=== PATIENT | male | born 1945 | race Caucasian/White ===

== ENCOUNTER 2017-08-07 13:55 | Inpatient (IN) | payer BC, OTHER ==
[~2017-08-07] VITALS: Ht 175.3 cm; Wt 94.7 kg
--- NOTE | ~2017-08-07 | H ---
[facility] [place] [address] HISTORY AND PHYSICAL Name: SATYA RUIZ Room #: 506-1 ADM IN M.R.#: [id number] Admission: 08/07/17 Attend Phys: Himanshu Davis MD Discharge: Date of : 49 Report #: [id number] THIS REPORT FOR: //name// CC: Himanshu Mauro DATE OF SERVICE: 08/07/2017 HISTORY AND PHYSICAL/POST-ADMISSION PHYSICIAN EVALUATION HISTORY OF PRESENT ILLNESS: The patient is a 72-year-old white male with history of multiple sclerosis, gradual worsening weakness, who was noted to have a decline in his overall function. He had been ambulatory with the walker around the house, but over the past several months, he has had steady and significant decline. His has had to do more and more assistance. He was diagnosed with a urinary tract infection and upon admission was noted to have significant urinary retention with residual greater than 700 mL, even while on Flomax. Urology saw him and he has now undergone a suprapubic tube, which has been placed. He has the significant functional deficits and has now been admitted for acute in-hospital inpatient rehabilitation. PAST MEDICAL HISTORY: Acute renal insufficiency, degenerative arthritis, UTIs, which are noted to be recurrent and the multiple sclerosis. MEDICATIONS: Please see the full medication listing. Each of these was individually reconciled upon the patient's admission and includes vitamins, herbals and supplements. ALLERGIES: No known drug allergies. SOCIAL HISTORY: Lives with spouse. She helps with most ADLs. He had been primarily wheelchair bound, although he could ambulate short distances with a walker with assist. She works from home and notes that she can do her job online. REVIEW OF SYSTEMS: Did not offer any current complaints of chest pain, shortness of breath, abdominal discomfort. No focal extremity pain complaints. PHYSICAL EXAMINATION: GENERAL: A pleasant 72-year-old male in no obvious distress. VITAL SIGNS: Last recorded temperature is 99.8, pulse 104, respirations 18, blood pressure 136/72. Admission vitals are being obtained while on the rehab hogue. HEENT: Appeared to be benign. He has obvious dysarthria and some evidence of masked facies. NECK: No lymphadenopathy. [facility] [address] [place] [address] HISTORY AND PHYSICAL Name: SATYA RUIZ Room #: 506-1 ADM IN .R.#: [id number] Admission: 08/07/17 Attend Phys: Himanshu Davis MD Discharge: Date of : 49 Report #: [id number] CHEST: Sounded clear to auscultation. CARDIOVASCULAR: Regular rate and rhythm. ABDOMEN: He has the suprapubic tube in place. The surrounding skin appears to be intact without any evidence of drainage or erythema. Bowel sounds are positive. EXTREMITIES: He has functional range of motion of both upper extremities with some rigidity. He has cogwheeling, elbows and wrists. He has resting tremor of both hands. Decreased strength grade 4-/5 with some decreased coordination. Lower extremities, no focal calf swelling, functional range of motion, although he has some rigidity. Strength is probably a grade 3-3+/5. DTRs are decreased. He has been needing max assist for basic functional mobility skills. ASSESSMENT: A 72-year-old white male with the following problem list: 1. Multiple sclerosis with significant functional decline. 2. Urinary retention, now status post suprapubic tube. 3. Recurrent urinary tract infections. 4. Degenerative arthritis, multiple joints. 5. Functional mobility and ADL deficits. PLAN: The patient is admitted for acute in-hospital inpatient rehabilitation. From a post-admission physician evaluation perspective, there are no relevant changes since the preadmission screening. Please see the above review of prior and current medical and functional conditions and comorbidities. Please see the patient's previous and current functional status. As far as risk of complications, the patient has multiple medical comorbidities as noted above. The initial plan of care involves the interdisciplinary acute inpatient rehabilitation program with the goal of maximizing the patient's functional independence, so that he can hopefully return back to his prior living situation. Prognosis is reasonably good with estimated length of stay probably at least 1-2 weeks or potentially longer pending progress. Potential barriers would include his multiple medical comorbidities and decreased functional status. The patient is admitted for an acute interdisciplinary inpatient rehabilitation stay with the goal of maximizing his functional independence, so that he can return back to the home setting. Discussion with the who is closely involved. <ELECTRONICALLY SIGNED> By: Himanshu Davis MD 08/14/17 1316 [id number] Himanshu Davis MD /[facility]
--- NOTE | ~2017-08-07 | HC ---
[facility] [place] [address] CONSULTATION Name: SATYA RUIZ Room #: 506-1 ADM IN M.R.#: [id number] Admission: 08/07/17 Attend Phys: Himanshu Davis MD Discharge: Date of : 49 Report #: [id number] THIS REPORT FOR: //name// CC: Himanshu Mauro DATE OF SERVICE: 08/11/2017 NEUROBEHAVIORAL STATUS EXAM AGE: 72. ATTENDING PHYSICIAN: Himanshu Davis MD. STAMPING MILL TENDER: Champ Joshua, PhD. CLINICAL PRESENTATION: The patient is a 72-year-old male admitted to the [facility] for comprehensive inpatient rehabilitation program to improve functional mobility, activities of daily living and self-care and mental status secondary to deficits from multiple sclerosis and functional decline. His assessment on admission includes recurrent retention status post suprapubic tube, recurrent urinary tract infections, degenerative arthritis and functional mobility and ADL deficits. A complete description of his medical condition and history can be found in his medical record. Neuropsychological consultation was requested to provide assistance in the assessment of cognitive and emotional status and to provide recommendations and services. Prior to this admission, he was living with his in their home. She is reported to provide assistance with most activities of daily living. He is right wheelchair bound and requires assistance for basic and instrumental activities of daily living. He does not report having had children. He had one sibling. 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 He is a college graduate. TECHNIQUES UTILIZED: Clinical interview, review of medical records, staff consultation and behavioral observation, mini mental status exam 2 standard version. EXAMINATION FINDINGS: The patient was alert and cooperative with the assessment. He was unable to describe the reason for his hospitalization. He required assistance in turning off the television through the remote control. The patient does not report auditory or visual hallucinations. Deficits in verbal fluency are noted. Severe hand tremors and weakness were noted bilaterally. The patient had difficulty with verbal fluency which interferes with description of symptoms and problems. He describes feeling depressed about his loss of his cognitive ability, memory and word finding. [facility] [address] [place] [address] CONSULTATION Name: SARASATYA FRANCIS Room #: 506-1 ADM IN M.R.#: [id number] Admission: 08/07/17 Attend Phys: Himanshu Davis MD Discharge: Date of : 49 Report #: [id number] appetite are described as within normal limits. His performance on the mini mental status exam 2 brief version was extremely low with a raw score 4 of 16. The MMSE 2 standard version was extremely low with a raw score of 11 of 30. The patient was 3/3 for initial registration. He was 0/5 for orientation to time and 1/[address] He was 0/3 correct for immediate recall of 3 items after a brief time delay and distraction. He was 0/5 for serial 7's, 2/2 for naming, 1/1 for repetition and 3/3 for auditory comprehension. He could read and follow single command. The patient was unable to copy a simple design or write a sentence. 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 The patient is presenting with severe deficits in orientation, attention/concentration, memory and executive functioning. Depressed mood is also noted. DIAGNOSTIC IMPRESSION: Major neurocognitive disorder (dementia), unspecified, without behavior disorder - moderate to severe. Unspecified depressive disorder with anxiety. RECOMMENDATIONS: Indicated is a treatment program for cognitive disorder and depression. Medication to support cognition and The use of an antidepressant will be helpful. Environmental modifications to assist him in compensation will be of benefit to improve his sense of control. Verbal praise and complements about participation in therapies and in the engagement of independent activity. The patient will require 24-hour care with close supervision to maintain safety for medication finances and nutrition. Thank you very much for allowing me to provide the consultation on this patient. <ELECTRONICALLY SIGNED> By: Champ Joshua, PhD 08/17/17 1405 [id number] Champ Joshua, PhD /nt
--- NOTE | ~2017-08-07 | PLAN ---
[facility] [place] [address] [place] [address] REHAB UNIT PLAN OF CARE Name: SATYA RUIZ Room #: 506-1 ADM IN M.R.#: [id number] Admission: 08/07/17 Attend Phys: Himanshu Davis MD Discharge: Date of : 49 Report #: [id number] THIS REPORT FOR: //name// CC: Himanshu Mauro DATE OF SERVICE: 08/09/2017 SUBJECTIVE: The patient is seen back today in followup. He is in no distress. Temperature 36.7, pulse 110, respirations 18, blood pressure 145/65. Chest sounds clear. No focal calf swelling. Transfers are max assist, bed to wheelchair. He has ambulated 4 feet, mod assist in the parallel bars, which is progress. In occupational therapy, lower body dressing is dependent, upper body dressing is dependent. He does have [id number] comprehensive deficits per speech therapy. I examined his suprapubic tube and it appears to be intact. There is no drainage or erythema. He did have a chest x-ray that was done yesterday that showed a small left pleural effusion with mild plates-like atelectasis at left lower lobe. ASSESSMENT: 1. Multiple sclerosis with significant functional decline. 2. Urinary retention, now status post suprapubic tube. 3. Recurrent urinary tract infections. 4. Degenerative arthritis involving multiple joints. 5. Multiple mobility and ADL deficits. PLAN: The overall plan of care is based on the preadmission screen, post admission physician evaluation and information garnered from therapy assessments. 1. Estimated length of stay is probably at least 1-2 weeks pending progress and likely longer as he is at a lower functional level. 2. Medical prognosis is reasonably good. 3. Anticipated interventions includes the interdisciplinary acute inpatient rehabilitation program with the goal of maximizing his functional independence, so he can hopefully return back to the home setting. 4. Anticipated functional outcomes would be for the patient to become modified independent with transfers, mobility and ADLs as well as improved communication so that he can return back to the home setting. 5. Discharge destination is back to the home setting with his . 6. Expected therapy by discipline includes PT and OT and speech 1 hour per day each 5 days a week throughout the duration of the acute inpatient rehabilitation stay. We may be able to focus more on the PT and the OT depending upon how he does in speech therapy. <ELECTRONICALLY SIGNED> By: Himanshu Davis MD 08/15/17 1456 [id number] Himanshu Davis MD /[facility]
[~2017-08-07 13:55] MED LIST: ALEVE220 MG PO; CEFDINIR300 MG PO; CELESTONE30 MG/5 ML IM; CLARITIN10 MG PO; FLOMAX0.4 MG PO; LIPITOR10 MG PO; METFORMIN HCL500 MG PO; ONE DAILY COMP1 EAC1 PO; VITAMIN D2000 UNIT PO
[2017-08-07 15:58] VITALS: BP 139/40
[2017-08-07 19:47] VITALS: BP 137/68
[2017-08-08 06:40] LABS: HEMATOCRIT 38.2 % (42.0-52.0); HEMOGLOBIN 12.8 gm/dL (14.0-18.0); MCH 30.6 pg (26.0-34.0); MCHC 33.6 g/dL (28.0-37.0); MCV 91.1 fL (80.0-100.0); RBC 4.19 mil/uL (4.50-6.00); RDW 13.8 % (10.5-14.5); WBC 12.9 thou/uL (4.0-11.0)
[2017-08-08 06:57] LABS: CALCIUM 9.3 mg/dL (8.5-10.1); CREATININE 0.7 mg/dL (0.7-1.3); POTASSIUM 4.1 mmol/L (3.5-5.1)
[2017-08-08 08:30] VITALS: BP 132/79
[2017-08-08 19:36] VITALS: BP 145/65
[2017-08-09 20:32] VITALS: BP 147/79
[2017-08-10 08:30] VITALS: BP 145/75
[2017-08-10 20:11] VITALS: BP 136/80
[2017-08-11 09:36] VITALS: BP 126/75
[2017-08-11 20:40] VITALS: BP 132/89
[2017-08-12 08:15] VITALS: BP 132/82
[2017-08-12 20:10] VITALS: BP 134/67
[2017-08-13 07:58] VITALS: BP 109/56
[2017-08-13 19:46] VITALS: BP 134/80
[2017-08-14 08:00] VITALS: BP 116/69
[2017-08-14 20:07] VITALS: BP 130/81
[2017-08-15 08:30] VITALS: BP 135/78
[2017-08-15 19:54] VITALS: BP 121/67
[2017-08-16 07:44] VITALS: BP 130/77
[2017-08-16 19:49] VITALS: BP 134/82
[2017-08-17 07:30] VITALS: BP 133/80
[2017-08-17 19:28] VITALS: BP 123/77
[2017-08-18 19:58] VITALS: BP 128/82
[2017-08-19 08:00] VITALS: BP 104/71
[2017-08-19 19:50] VITALS: BP 128/72
[2017-08-20 08:15] VITALS: BP 127/82
[2017-08-20 20:00] VITALS: BP 152/74
[2017-08-21 08:46] VITALS: BP 122/74
[2017-08-21 19:51] VITALS: BP 142/89
[2017-08-22 08:15] VITALS: BP 127/81
[2017-08-22 19:46] VITALS: BP 151/89
[2017-08-23 07:45] VITALS: BP 126/70
[2017-08-23 19:42] VITALS: BP 143/85
[2017-08-24 11:23] VITALS: BP 126/76
[2017-08-24 19:34] VITALS: BP 140/76
[2017-08-25 08:00] VITALS: BP 120/73
[2017-08-25 20:00] VITALS: BP 131/63
[2017-08-26 08:00] VITALS: BP 153/84
[2017-08-26 20:01] VITALS: BP 137/82
[2017-08-27 07:30] VITALS: BP 122/69
== END 2017-08-27 16:35 | DRG 59 ==
PROVIDERS: Physical Medicine & Rehabilitation
DX: G35 Multiple sclerosis (principal); N39.0 Urinary tract infection, site not specified; R33.9 Retention of urine, unspecified; M19.90 Unspecified osteoarthritis, unspecified site; F01.50 Vascular dementia, unspecified severity, without behavioral disturbance, psychotic disturbance, mood disturbance, and anxiety; F41.8 Other specified anxiety disorders; R53.81 Other malaise; E11.9 Type 2 diabetes mellitus without complications; Z23 Encounter for immunization
CPT/HCPCS: 10112

== ENCOUNTER 2017-11-05 08:39 | Emergency (ER) | payer BC, OTHER ==
[~2017-11-05] VITALS: Ht 180.3 cm; Wt 86.2 kg
[2017-11-05 08:52] LABS: POC CA IONIZED 6.4 mg/dL (4.5-5.3); POC HEMOGLOBIN 12.6 g/dL (14.0-18.0)
== END 2017-11-05 08:58 ==
LOC: ER 08:39
DX: I46.9 Cardiac arrest, cause unspecified (principal); E78.00 Pure hypercholesterolemia, unspecified; F32.9 Major depressive disorder, single episode, unspecified; E11.9 Type 2 diabetes mellitus without complications